=== PATIENT | male | born 1935 | race Caucasian/White ===

== ENCOUNTER 2019-03-17 18:16 | Emergency (ER) | payer OTHER ==
[2019-03-17 18:23] VITALS: BP_SYST 121
--- NOTE | 2019-03-17 19:17 | NUR ---
Called name, no response.
--- NOTE | 2019-03-17 19:32 | NUR ---
CALLED NAME, NO RESPONSE.
--- NOTE | 2019-03-17 19:40 | NUR ---
Patient left without being seen at 1940.
--- NOTE | 2019-03-17 19:40 | NUR ---
Called name no response
== END 2019-03-17 19:17 | disposition left against medical advice (07) ==
LOC: SED 18:16
DX: R68.83 Chills (without fever) (principal); Z53.21 Procedure and treatment not carried out due to patient leaving prior to being seen by health care provider